=== PATIENT | female | born 1950 | race Caucasian/White ===

== ENCOUNTER 2020-09-24 09:57 | Observation (INO) | payer MEDICARE ==
[~2020-09-24] VITALS: Ht 162.6 cm; Wt 48.1 kg
[~2020-09-24 09:57] MED LIST: AMBIEN; ATIVAN1 MG PO; KLONOPIN0.5 MG; MIRTAZAPINE15 MG PO; PROAIR HFA INH8.5 GM INH; ROPIVACAINE 246.25 MG, EPINEPHRINE HCL 1:1000 1ML 0.5 MG, CLONIDINE HCL 0.08 MG, KETORO... INJ ONE; SEROQUEL50 MG PO; SYMBICORT 16010.2 GM INH; ULTRAM50 MG PO; XIFAXAN200 MG; XOPENEX
[2020-09-24] MEDS ORDERED: PEPTO-BISM262 MG/15 PO (10:13)
[2020-09-24] MEDS ORDERED: IMMODIUM PO (10:14)
[2020-09-24] MEDS ORDERED: CLONAZEPAM0.5 MG PO (10:14)
[2020-09-24] MEDS ORDERED: CELECOXIB 200 MG CAP ONE (10:36)
[2020-09-24] MEDS ORDERED: CEFAZOLIN SOD 1 GM/NS 50ML 100 ML IV ONE (10:37)
[2020-09-24] MEDS ORDERED: DEXAMETHASONE SOD PHOS 10 MG/1 ML VIAL ONE (10:37)
[2020-09-24] MEDS ORDERED: GABAPENTIN 300 MG CAP ONE (10:37)
[2020-09-24] MEDS ORDERED: VANCOMYCIN HCL 1,000 MG ONE (11:28)
[2020-09-24] MEDS ORDERED: TRANEXAMIC ACID 1,000 MG/10 ML ML ONE (11:28)
[2020-09-24] MEDS ORDERED: SODIUM CHLORIDE 0.9% 500ML 500 ML ONE (11:29)
[2020-09-24] MEDS ORDERED: BUPIVACAINE 7.5MG/ML /DEXTROSE 82.5MG/ML 2 ML AMP INJ ONE (11:55)
[2020-09-24] MEDS ORDERED: SODIUM CHLORIDE 0.9% 100 ML ONE (12:30)
[2020-09-24] MEDS ORDERED: MIDAZOLAM HCL 2 MG/2 ML VIAL ONE (13:14)
[2020-09-24] MEDS ORDERED: MIDAZOLAM HCL 5 MG/ML VIAL ONE (13:14)
[2020-09-24] MEDS ORDERED: DOCUSATE SODIUM 100 MG CAP PO PRN (13:15)
[2020-09-24] MEDS ORDERED: DIPHENHYDRAMINE HCL INJ 50 MG/ML VIAL IV PRN (13:15)
[2020-09-24] MEDS ORDERED: HYDROCODONE/APAP 7.5MG-325MG 1 EA TAB PO PRN (13:15)
[2020-09-24] MEDS ORDERED: HYDROCODONE/APAP 5MG-325MG TAB PO PRN (13:15)
[2020-09-24] MEDS ORDERED: ACETAMINOPHEN 650 MG SUPP PR PRN (13:15)
[2020-09-24] MEDS: SODIUM CHLORIDE 0.9% 1000ML 1,000 ML IV SCH ×2 (13:15→20:02)
[2020-09-24] MEDS ORDERED: ONDANSETRON HCL INJ 2MG/ML 2ML 2 MG/ML VIAL IV PRN (13:15)
[2020-09-24] MEDS ORDERED: KETOROLAC TROMETHAMINE 30 MG/ML VIAL IV PRN (13:15)
[2020-09-24] MEDS ORDERED: PROPOFOL IV EMULSION 10 MG/ML 20 ML VIAL ONE (13:17)
[2020-09-24] MEDS ORDERED: CEFAZOLIN SOD 1 GM/NS 50ML 50 ML IV SCH (14:00)
[2020-09-24 15:51] VITALS: BP 113/64
[2020-09-24 16:23] VITALS: BP 113/64
[2020-09-24 16:33] VITALS: BP 113/64
[2020-09-24] MEDS ORDERED: QUETIAPINE FUMARATE 25 MG TAB PO SCH ×2 (17:00→21:00)
[2020-09-24] MEDS ORDERED: IMMODIUM PO SCH (17:00)
[2020-09-24] MEDS ORDERED: BISMUTH SUBSALICYLATE 262 MG/15 ML 8OZ BTL PO PRN (17:00)
[2020-09-24] MEDS ORDERED: ACETAMINOPHEN 1000 MG/100 ML IV PRN (17:00)
[2020-09-24] MEDS ORDERED: LOPERAMIDE HCL 2 MG CAP PO PRN ×2 (17:15→17:30)
[2020-09-24] MEDS ORDERED: CLONAZEPAM 0.5 MG TAB PO SCH (18:30)
[2020-09-24] MEDS ORDERED: LOPERAMIDE HCL 2 MG CAP PO ONE (18:35)
[2020-09-24] MEDS: CELECOXIB 100 MG CAP PO SCH (18:39)
[2020-09-24] MEDS: ASPIRIN 325 MG TAB PO SCH (18:39)
[2020-09-24] MEDS: CLONAZEPAM 0.5 MG TAB PO SCH (18:40)
[2020-09-24] MEDS: BUDESONIDE/FORMOTEROL 160/4.5MCG INHALER INH SCH (19:00)
[2020-09-24] MEDS: ALBUTEROL SULFATE HFA 8GM INHALATION AEROSOL INH SCH (19:00)
[2020-09-24] MEDS: CEFAZOLIN SOD 1 GM/NS 50ML 50 ML IV SCH (19:52)
[2020-09-24 20:00] VITALS: BP 70/44
[2020-09-24 20:24] VITALS: BP 96/55
[2020-09-24 20:25] VITALS: BP 96/55
[2020-09-24] MEDS ORDERED: ZOLPIDEM TARTRATE 5 MG TAB PO PRN (21:00)
[2020-09-24] MEDS ORDERED: MIRTAZAPINE 15 MG TAB PO SCH (21:00)
[2020-09-24] MEDS ORDERED: TRAMADOL HCL 50 MG TAB PO PRN (22:15)
[2020-09-25] VITALS (9 sets, daily range): BP systolic 80–102; BP diastolic 41–61
[2020-09-25] MEDS: CEFAZOLIN SOD 1 GM/NS 50ML 50 ML IV SCH (04:28)
[2020-09-25 05:14] LABS: BASOPHILS % 0.3 % (0.0-1.0); EOSINOPHILS % 0.3 % (0.0-6.0); HEMATOCRIT 26.1 % (34.2-44.1); HEMOGLOBIN 8.7 g/dL (12.0-16.0); LYMPHOCYTES # (AUTO) 1.3 (1.0-3.2); LYMPHOCYTES % 17.6 % (18.0-39.1); MEAN CORPUSCULAR HEMOGLOBIN 29.5 pg (28-32); MEAN CORPUSCULAR HGB CONC 33.3 g/dL (31-35); MEAN CORPUSCULAR VOLUME 88.5 fL (81-99); MONOCYTES # (AUTO) 0.8 (0.2-0.8); MONOCYTES % 10.8 % (4.4-11.3); NEUTROPHILS # (AUTO) 5.2 (2.1-6.9); NEUTROPHILS % 70.7 % (38.7-80.0); PLATELET COUNT 161 x10e3/uL (140-360); RED BLOOD COUNT 2.95 x10e6/uL (3.6-5.1); RED CELL DISTRIBUTION WIDTH 13.3 % (11.7-14.4)
[2020-09-25 05:37] LABS: ANION GAP 12.3 mmol/L (8-16); BLOOD UREA NITROGEN 19 mg/dL (7-26); BUN/CREATININE RATIO 28 (6-25); CALCIUM 7.5 mg/dL (8.4-10.2); CARBON DIOXIDE 20 mmol/L (22-29); CHLORIDE 102 mmol/L (98-107); CREATININE, SERUM 0.69 mg/dL (0.57-1.11); EST GLOMERULAR FILTRATION RATE > 60 ML/MIN (60-); GLUCOSE 107 mg/dL (74-118); POTASSIUM 4.3 mmol/L (3.5-5.1); SODIUM 130 mmol/L (136-145)
[2020-09-25] MEDS: SODIUM CHLORIDE 0.9% 1000ML 1,000 ML IV SCH (06:36)
[2020-09-25] MEDS: ALBUTEROL SULFATE HFA 8GM INHALATION AEROSOL INH SCH (07:00)
[2020-09-25] MEDS: BUDESONIDE/FORMOTEROL 160/4.5MCG INHALER INH SCH (07:00)
[2020-09-25] MEDS: CELECOXIB 100 MG CAP PO SCH (07:45)
[2020-09-25] MEDS: CLONAZEPAM 0.5 MG TAB PO SCH ×2 (07:52→17:00)
[2020-09-25] MEDS: ASPIRIN 325 MG TAB PO SCH ×2 (09:00→17:00)
[2020-09-25] MEDS ORDERED: DEXAMETHASONE SOD PHOS 10 MG/1 ML VIAL ONE (09:27)
[2020-09-25] MEDS ORDERED: ASPIRIN 81 MG CHEW TAB PO ONE (09:30)
[2020-09-25 09:38] LABS: BASOPHILS % 0.4 % (0.0-1.0); EOSINOPHILS % 0.6 % (0.0-6.0); HEMATOCRIT 23.3 % (34.2-44.1); HEMOGLOBIN 7.9 g/dL (12.0-16.0); LYMPHOCYTES # (AUTO) 2.5 (1.0-3.2); LYMPHOCYTES % 33.9 % (18.0-39.1); MEAN CORPUSCULAR HEMOGLOBIN 29.2 pg (28-32); MEAN CORPUSCULAR HGB CONC 33.9 g/dL (31-35); MONOCYTES # (AUTO) 0.6 (0.2-0.8); NEUTROPHILS # (AUTO) 4.1 (2.1-6.9); NEUTROPHILS % 56.8 % (38.7-80.0); PLATELET COUNT 177 x10e3/uL (140-360); RED BLOOD COUNT 2.71 x10e6/uL (3.6-5.1); RED CELL DISTRIBUTION WIDTH 13.5 % (11.7-14.4)
[2020-09-25] MEDS ORDERED: ALBUTEROL/IPRATROPIUM 3 ML NEB ONE (09:38)
[2020-09-25 09:59] LABS: CREATINE KINASE 513 IU/L (29-168)
[2020-09-25] MEDS ORDERED: ONDANSETRON HCL 4 MG ORAL DISINTEGRATING TAB PO PRN (12:30)
== END 2020-09-25 18:10 | disposition home or self-care (01) ==
LOC: OR 09:57 → PACU V 13:14 → MED/SURG 14:58
PROVIDERS: ADMIT Specialist; ATTEND Specialist
DX: M87.852 Other osteonecrosis, left femur (principal); Z20.828 Contact with and (suspected) exposure to other viral communicable diseases; I95.9 Hypotension, unspecified; R06.03 Acute respiratory distress; F41.9 Anxiety disorder, unspecified; F32.9 Major depressive disorder, single episode, unspecified; J45.909 Unspecified asthma, uncomplicated; S72.042 Displaced fracture of base of neck of left femur
CPT/HCPCS: 20680; 27130; 36415 ×2; 71046 ×2; 72170; 80048; 82550; 82553; 82948; 84484; 85025; 86850; 86900; 86920; 93005; 93306; 97110; 97116 ×2; 97139; 97161; 97530 ×2; G0378 ×2; J0131; J0171; J0690 ×2; J1100 ×2; J1200; J1885; J2704; J2795; J3370; J7030 ×2; J7040; J7050; U0002; J2250

== ENCOUNTER → 2022-08-17 | Outpatient (CLI) | payer MEDICARE ==
[~2022-08-17] MED LIST changes: +CLONAZEPAM0.5 MG PO; +IMMODIUM PO; +PEPTO-BISM262 MG/15 PO; -ROPIVACAINE 246.25 MG, EPINEPHRINE HCL 1:1000 1ML 0.5 MG, CLONIDINE HCL 0.08 MG, KETORO... INJ ONE
== END ==
LOC: CT 12:52
PROVIDERS: ATTEND Family Medicine
DX: R42 Dizziness and giddiness (principal); S09.90XA Unspecified injury of head, initial encounter
CPT/HCPCS: 70450

== ENCOUNTER → 2022-11-12 | Outpatient (CLI) | payer MEDICARE ==
[~2022-11-12] MED LIST changes: +DIATRIZOATE MEGL/DIATRIZOA SOD 120 ML BTL PO ONE
== END ==
LOC: DX 10:39
PROVIDERS: ATTEND Internal Medicine Gastroenterology
DX: K25.4 Chronic or unspecified gastric ulcer with hemorrhage (principal)
CPT/HCPCS: 74246; Q9963

== ENCOUNTER 2024-02-01 10:22 | Observation (INO) | payer MEDICARE ==
[~2024-02-01] VITALS: Ht 162.6 cm; Wt 48.1 kg
[~2024-02-01 10:22] MED LIST changes: -DIATRIZOATE MEGL/DIATRIZOA SOD 120 ML BTL PO ONE; +DICYCLOMINE HCL20 MG PO; +GAS X; +PROTONIX20 MG PO; +SUCRALFATE1 GM PO
[2024-02-01] MEDS ORDERED: SODIUM CHLORIDE FLUSH 10 ML SYR IV PRN (11:15)
[2024-02-01 11:49] LABS: BASOPHILS % 0.6 % (0.0-1.0); EOSINOPHILS # (AUTO) 0.2 (0.0-0.4); EOSINOPHILS % 3.7 % (0.0-6.0); LYMPHOCYTES # (AUTO) 1.4 (1.0-3.2); MEAN CORPUSCULAR HEMOGLOBIN 30.1 pg (28-32); MEAN CORPUSCULAR HGB CONC 35.9 g/dL (31-35); MEAN CORPUSCULAR VOLUME 83.9 fL (81-99); MONOCYTES # (AUTO) 0.4 (0.2-0.8); MONOCYTES % 8.8 % (4.4-11.3); NEUTROPHILS # (AUTO) 2.8 (2.1-6.9); NEUTROPHILS % 58.5 % (38.7-80.0); PLATELET COUNT 258 x10e3/uL (140-360); RED BLOOD COUNT 4.65 x10e6/uL (3.6-5.1); RED CELL DISTRIBUTION WIDTH 14.5 % (11.7-14.4); WHITE BLOOD COUNT 4.86 x10e3/uL (4.8-10.8)
[2024-02-01] MEDS: SODIUM CHLORIDE 0.9% 1000ML 1,000 ML IV ONE (12:02)
[2024-02-01] MEDS ORDERED: SODIUM CHLORIDE 0.9% 1000ML 1,000 ML ONE (12:04)
[2024-02-01 12:07] LABS: ALBUMIN 4.6 g/dL (3.5-5.0); ALBUMIN/GLOBULIN RATIO 1.4 (0.8-2.0); ANION GAP 17.8 mmol/L (8-16); BILIRUBIN,TOTAL 0.4 mg/dL (0.2-1.2); CALCIUM 9.5 mg/dL (8.4-10.2); CREATININE, SERUM 0.74 mg/dL (0.57-1.11); POTASSIUM 3.8 mmol/L (3.5-5.1); TOTAL PROTEIN 7.9 g/dL (6.5-8.1)
[2024-02-01 12:12] LABS: TROPONIN I 0.005 ng/mL (0-0.300)
[2024-02-01] MEDS ORDERED: ONDANSETRON HCL INJ 2MG/ML 2ML 2 MG/ML VIAL IV PRN (13:45)
[2024-02-01] MEDS ORDERED: ASPIRIN 81 MG CHEW TAB PO ONE (13:45)
[2024-02-01] MEDS ORDERED: SODIUM CHLORIDE FLUSH 10 ML SYR INJ PRN (13:45)
[2024-02-01] MEDS ORDERED: LORAZEPAM 1 MG TAB ONE (15:28)
[2024-02-01] MEDS: LORAZEPAM 1 MG TAB PO ONE (15:28)
[2024-02-01 17:45] VITALS: BP 111/65; PULSE 70; RESP 19; TEMP 97.6; O2SAT 98
[2024-02-01 20:00] VITALS: BP_SYST 103; BP_SYST 111; BP_DIAS 65; BP_DIAS 68; PULSE 70; PULSE 76; RESP 18; RESP 19; TEMP 97.1; TEMP 97.6; O2SAT 96; O2SAT 98
[2024-02-01] MEDS ORDERED: PROTONIX20 MG PO (21:53)
[2024-02-01] MEDS ORDERED: ATIVAN1 MG PO (21:56)
[2024-02-01] MEDS: PANTOPRAZOLE SODIUM 20 MG TABLET.DR PO SCH (23:00)
[2024-02-01] MEDS: QUETIAPINE FUMARATE 100 MG TAB PO SCH (23:00)
[2024-02-02] VITALS (8 sets, daily range): BP systolic 88–123; BP diastolic 65–74; PULSE 70–88; RESP 18–19; TEMP 96.8–98.1; O2SAT 92–100
[2024-02-02 00:08] LABS: CREATINE KINASE 100 IU/L (29-168)
[2024-02-02 05:35] LABS: BASOPHILS % 0.8 % (0.0-1.0); EOSINOPHILS # (AUTO) 0.4 (0.0-0.4); EOSINOPHILS % 7.4 % (0.0-6.0); HEMOGLOBIN 11.9 g/dL (12.0-16.0); LYMPHOCYTES # (AUTO) 1.9 (1.0-3.2); LYMPHOCYTES % 39.7 % (18.0-39.1); MEAN CORPUSCULAR HEMOGLOBIN 29.9 pg (28-32); MEAN CORPUSCULAR HGB CONC 36.1 g/dL (31-35); MEAN CORPUSCULAR VOLUME 82.9 fL (81-99); MONOCYTES # (AUTO) 0.3 (0.2-0.8); MONOCYTES % 7.2 % (4.4-11.3); NEUTROPHILS # (AUTO) 2.1 (2.1-6.9); NEUTROPHILS % 44.7 % (38.7-80.0); PLATELET COUNT 201 x10e3/uL (140-360); RED BLOOD COUNT 3.98 x10e6/uL (3.6-5.1); RED CELL DISTRIBUTION WIDTH 14.3 % (11.7-14.4); WHITE BLOOD COUNT 4.71 x10e3/uL (4.8-10.8)
[2024-02-02 06:07] LABS: ALBUMIN 3.7 g/dL (3.5-5.0); ALBUMIN/GLOBULIN RATIO 1.4 (0.8-2.0); ANION GAP 13.9 mmol/L (8-16); BILIRUBIN,TOTAL 0.3 mg/dL (0.2-1.2); CALCIUM 8.6 mg/dL (8.4-10.2); CREATININE, SERUM 0.62 mg/dL (0.57-1.11); POTASSIUM 3.9 mmol/L (3.5-5.1); TOTAL PROTEIN 6.3 g/dL (6.5-8.1)
[2024-02-02 07:17] LABS: BILIRUBIN,URINE NEGATIVE (NEGATIVE); CLARITY,URINE CLEAR (CLEAR); COLOR,URINE YELLOW (YELLOW); GLUCOSE, URINE NEGATIVE (NEGATIVE); KETONES,URINE NEGATIVE (NEGATIVE); LEUKOCYTE ESTERASE ,URINE SMALL (NEGATIVE); NITRITE,URINE NEGATIVE (NEGATIVE); PH,URINE 7 (5 - 7); PROTEIN,URINE DIPSTICK NEGATIVE (NEGATIVE); URINE UROBILINOGEN 0.2 mg/dL (0.2 - 1)
[2024-02-02] MEDS ORDERED: PANTOPRAZOLE SODIUM 20 MG TABLET.DR PO ONE ×2 (07:41→17:35)
[2024-02-02 07:43] LABS: RBC,URINE 0-5 /HPF (0-5); WBC,URINE (MAN) 21-50 /HPF (0-5)
[2024-02-02 07:44] LABS: BACTERIA,URINE FEW /HPF; EPITHELIAL CELLS,URINE FEW /LPF; TRANSITIONAL EPI CELLS,URINE RARE
[2024-02-02 08:38] LABS: TROPONIN I 0.006 ng/mL (0-0.300)
[2024-02-02] MEDS: MIDODRINE HCL 5 MG TABLET PO SCH (09:26)
[2024-02-02] MEDS: ASPIRIN 81 MG ENTERIC COATED PO SCH (09:26)
[2024-02-02] MEDS ORDERED: ASPIRIN 81 MG ENTERIC COATED PO ONE ×2 (09:28→17:35)
[2024-02-02] MEDS ORDERED: MIDODRINE HCL 5 MG TABLET ONE ×3 (09:29→17:35)
[2024-02-02] MEDS ORDERED: ALPRAZOLAM 1 MG TAB ONE ×2 (11:06→11:14)
[2024-02-02] MEDS: LORAZEPAM 1 MG TAB PO PRN (11:23)
[2024-02-02] MEDS ORDERED: LORAZEPAM 1 MG TAB ONE ×3 (11:25→17:35)
[2024-02-02] MEDS ORDERED: QUETIAPINE FUMARATE 100 MG TAB ONE (17:35)
[2024-02-02] MEDS ORDERED: BUDESONIDE/FORMOTEROL 160/4.5MCG INHALER INH SCH (19:00)
[2024-02-03 00:18] VITALS: BP 106/64; PULSE 73; RESP 18; TEMP 98; O2SAT 100
[2024-02-03 04:00] VITALS: BP 102/69; PULSE 82; RESP 17; TEMP 97.8; O2SAT 97
[2024-02-03 05:59] LABS: BASOPHILS # (AUTO) 0.1 (0.0-0.1); BASOPHILS % 0.9 % (0.0-1.0); EOSINOPHILS # (AUTO) 0.5 (0.0-0.4); EOSINOPHILS % 8.3 % (0.0-6.0); HEMATOCRIT 35.7 % (34.2-44.1); HEMOGLOBIN 12.9 g/dL (12.0-16.0); LYMPHOCYTES # (AUTO) 1.8 (1.0-3.2); LYMPHOCYTES % 30.3 % (18.0-39.1); MEAN CORPUSCULAR HEMOGLOBIN 30.4 pg (28-32); MEAN CORPUSCULAR HGB CONC 36.1 g/dL (31-35); MEAN CORPUSCULAR VOLUME 84.2 fL (81-99); MONOCYTES # (AUTO) 0.5 (0.2-0.8); MONOCYTES % 8.3 % (4.4-11.3); NEUTROPHILS % 51.9 % (38.7-80.0); PLATELET COUNT 226 x10e3/uL (140-360); RED BLOOD COUNT 4.24 x10e6/uL (3.6-5.1); RED CELL DISTRIBUTION WIDTH 14.5 % (11.7-14.4); WHITE BLOOD COUNT 5.77 x10e3/uL (4.8-10.8)
[2024-02-03 06:52] LABS: ALBUMIN 3.7 g/dL (3.5-5.0); ALBUMIN/GLOBULIN RATIO 1.3 (0.8-2.0); ANION GAP 14.9 mmol/L (8-16); BILIRUBIN,TOTAL 0.2 mg/dL (0.2-1.2); CALCIUM 8.6 mg/dL (8.4-10.2); CREATININE, SERUM 0.62 mg/dL (0.57-1.11); MAGNESIUM 1.9 MG/DL (1.3-2.1); PHOSPHORUS 3.6 MG/DL (2.3-4.7); POTASSIUM 3.9 mmol/L (3.5-5.1); TOTAL PROTEIN 6.6 g/dL (6.5-8.1)
[2024-02-03 06:54] LABS: THYROID STIMULATING HORMONE 2.729 uIU/mL (0.350-4.940)
[2024-02-03] MEDS ORDERED: MIDODRINE HCL 5 MG TABLET ONE ×2 (07:42→11:08)
[2024-02-03] MEDS ORDERED: ASPIRIN 81 MG ENTERIC COATED PO ONE (07:42)
[2024-02-03] MEDS ORDERED: PANTOPRAZOLE SODIUM 20 MG TABLET.DR PO ONE (07:42)
[2024-02-03 08:14] VITALS: BP 93/76; PULSE 84; RESP 17; TEMP 97.8; O2SAT 94
[2024-02-03 08:45] VITALS: BP 93/76; PULSE 84; RESP 17; TEMP 97.8; O2SAT 94
[2024-02-03] MEDS: CEPHALEXIN 500 MG CAP PO SCH (11:07)
[2024-02-03] MEDS ORDERED: LORAZEPAM 1 MG TAB ONE (11:08)
[2024-02-03] MEDS ORDERED: CEPHALEXIN 500 MG CAP ONE ×2 (11:09→15:27)
[2024-02-03] MEDS ORDERED: KEFLEX125 MG/5 M PO (11:17)
[2024-02-03] MEDS ORDERED: MIDODRINE HCL5 MG PO (11:18)
[2024-02-03] MEDS ORDERED: ONDANSETRON HCL 4 MG ORAL DISINTEGRATING TAB PO PRN (11:30)
[2024-02-03 11:55] VITALS: BP 102/70; PULSE 97; RESP 19; TEMP 97.9; O2SAT 99
[2024-02-03] MEDS ORDERED: POLYETHYLENE GLYCOL 3350 17 GM PACK ONE (15:26)
[2024-02-03] MEDS: POLYETHYLENE GLYCOL 3350 17 GM PACK PO SCH (15:28)
[2024-02-03 15:59] VITALS: BP 106/62; PULSE 70; RESP 19; TEMP 97.8; O2SAT 96
== END 2024-02-03 17:19 | disposition home or self-care (01) ==
LOC: ER 10:46 → ERHOLD 13:42 → MED/SURG2 16:50
PROVIDERS: ADMIT Internal Medicine; ATTEND Internal Medicine
DX: E87.1 Hypo-osmolality and hyponatremia (principal); I95.1 Orthostatic hypotension; N39.0 Urinary tract infection, site not specified; R32 Unspecified urinary incontinence; R07.9 Chest pain, unspecified; R10.13 Epigastric pain; J44.9 Chronic obstructive pulmonary disease, unspecified; E06.3 Autoimmune thyroiditis; F41.9 Anxiety disorder, unspecified; F32.A Depression, unspecified; M19.91 Primary osteoarthritis, unspecified site; F43.10 Post-traumatic stress disorder, unspecified; Z87.891 Personal history of nicotine dependence; Z11.52 Encounter for screening for COVID-19; Z79.899 Other long term (current) drug therapy
CPT/HCPCS: 36415 ×3; 70450; 80053 ×3; 81001; 82550 ×2; 83735; 83880; 83930; 83935; 84100; 84300; 84443; 84484 ×2; 85025 ×3; 93005; 93306; 93880; 99285; C9113; G0378 ×3; J7030; U0002

== ENCOUNTER 2024-08-12 18:07 | Emergency (ER) | payer MEDICARE ==
[~2024-08-12] VITALS: Ht 162.6 cm; Wt 40.8 kg
[~2024-08-12 18:07] MED LIST changes: +KEFLEX125 MG/5 M PO; +MIDODRINE HCL5 MG PO
[2024-08-12 18:44] LABS: BASOPHILS % 0.1 % (0.0-1.0); HEMOGLOBIN 13.1 g/dL (12.0-16.0); LYMPHOCYTES # (AUTO) 0.7 (1.0-3.2); LYMPHOCYTES % 7.5 % (18.0-39.1); MEAN CORPUSCULAR HEMOGLOBIN 30.1 pg (28-32); MEAN CORPUSCULAR HGB CONC 33.6 g/dL (31-35); MEAN CORPUSCULAR VOLUME 89.7 fL (81-99); MONOCYTES # (AUTO) 0.4 (0.2-0.8); MONOCYTES % 4.8 % (4.4-11.3); NEUTROPHILS # (AUTO) 7.7 (2.1-6.9); PLATELET COUNT 275 x10e3/uL (140-360); RED BLOOD COUNT 4.35 x10e6/uL (3.6-5.1)
[2024-08-12] MEDS: SODIUM CHLORIDE 0.9% 1000ML 1,000 ML IV STA (18:51)
[2024-08-12 19:09] LABS: ALBUMIN 4.3 g/dL (3.5-5.0); ALBUMIN/GLOBULIN RATIO 1.5 (0.8-2.0); ANION GAP 18.7 mmol/L (8-16); BILIRUBIN,TOTAL 0.7 mg/dL (0.2-1.2); CALCIUM 9.2 mg/dL (8.4-10.2); CREATININE, SERUM 1.12 mg/dL (0.57-1.11); POTASSIUM 3.7 mmol/L (3.5-5.1); TOTAL PROTEIN 7.2 g/dL (6.5-8.1)
[2024-08-12 19:14] LABS: TROPONIN I 0.005 ng/mL (0-0.300)
[2024-08-12 20:50] VITALS: PULSE 87; RESP 18; TEMP 98.1; O2SAT 95
== END 2024-08-12 20:55 | disposition home or self-care (01) ==
LOC: ER 18:14
DX: R50.9 Fever, unspecified (principal); S60.042A Contusion of left ring finger without damage to nail, initial encounter; M25.552 Pain in left hip; R51.9 Headache, unspecified; R55 Syncope and collapse; R53.81 Other malaise; W01.0XXA Fall on same level from slipping, tripping and stumbling without subsequent striking against object, initial encounter; Y93.01 Activity, walking, marching and hiking; Y92.89 Other specified places as the place of occurrence of the external cause; J44.9 Chronic obstructive pulmonary disease, unspecified; F41.9 Anxiety disorder, unspecified
CPT/HCPCS: 36415; 70450; 73140; 73502; 80053; 82550; 83880; 84484; 85025; 93005; 99283; J7030

== ENCOUNTER 2024-08-24 14:21 | Emergency (ER) | payer MEDICARE ==
[~2024-08-24] VITALS: Ht 162.6 cm; Wt 40.8 kg
[2024-08-24 15:02] VITALS: TEMP 98.4
[2024-08-24 15:30] VITALS: PULSE 87; RESP 16; O2SAT 98
[2024-08-24 15:44] LABS: EOSINOPHILS % 0.3 % (0.0-6.0); HEMATOCRIT 35.8 % (34.2-44.1); HEMOGLOBIN 11.7 g/dL (12.0-16.0); LYMPHOCYTES # (AUTO) 0.9 (1.0-3.2); LYMPHOCYTES % 15.3 % (18.0-39.1); MEAN CORPUSCULAR HGB CONC 32.7 g/dL (31-35); MEAN CORPUSCULAR VOLUME 91.8 fL (81-99); MONOCYTES # (AUTO) 0.5 (0.2-0.8); MONOCYTES % 8.4 % (4.4-11.3); NEUTROPHILS # (AUTO) 4.6 (2.1-6.9); NEUTROPHILS % 75.5 % (38.7-80.0); PLATELET COUNT 310 x10e3/uL (140-360); RED CELL DISTRIBUTION WIDTH 15.4 % (11.7-14.4); WHITE BLOOD COUNT 6.06 x10e3/uL (4.8-10.8)
[2024-08-24 15:47] LABS: CLARITY,URINE HAZY (CLEAR); COLOR,URINE YELLOW (YELLOW); LEUKOCYTE ESTERASE ,URINE SMALL (NEGATIVE); NITRITE,URINE POSITIVE (NEGATIVE); PH,URINE 7.5 (5 - 7)
[2024-08-24 15:48] LABS: BILIRUBIN,URINE NEGATIVE (NEGATIVE); GLUCOSE, URINE 1+ (NEGATIVE); KETONES,URINE TRACE (NEGATIVE); PROTEIN,URINE DIPSTICK 1+ (NEGATIVE); URINE UROBILINOGEN 1 mg/dL (0.2 - 1)
[2024-08-24 15:53] LABS: BACTERIA,URINE MANY /HPF; EPITHELIAL CELLS,URINE MODERATE /LPF; MUCUS,URINE FEW (RARE); RBC,URINE 0-5 /HPF (0-5); WBC,URINE (MAN) >50 /HPF (0-5)
[2024-08-24 16:04] LABS: ANION GAP 15.2 mmol/L (8-16); CALCIUM 9.7 mg/dL (8.4-10.2); CREATININE, SERUM 0.79 mg/dL (0.57-1.11); POTASSIUM 4.2 mmol/L (3.5-5.1)
[2024-08-24] MEDS ORDERED: CEFDINIR300 MG PO (16:14)
== END 2024-08-24 16:32 | disposition home or self-care (01) ==
LOC: ER 15:08
DX: R35.0 Frequency of micturition (principal); N39.0 Urinary tract infection, site not specified; F06.4 Anxiety disorder due to known physiological condition; J44.9 Chronic obstructive pulmonary disease, unspecified; J45.909 Unspecified asthma, uncomplicated; F32.A Depression, unspecified
CPT/HCPCS: 36415; 80048; 81001; 85025; 99284